=== PATIENT | female | born 1995 | race Caucasian/White ===

== ENCOUNTER 2016-10-29 11:26 | Emergency (ER) | payer OTHER ==
[2016-10-29 11:48] VITALS: RESP 16
[2016-10-29] MEDS ORDERED: NS 1,000 ML IV ONE (11:48)
[2016-10-29 12:12] LABS: % IMMATURE GRANULYOCYTES 0.5 % (0.0-1.1); ABSOLUTE IMMATURE GRANULOCYTES 0.04 10^3/uL (0.00-0.10); ADD DIFF? NO; ADD MORPH? NO; ADD SCAN? NO; ATYPICAL LYMPHOCYTE FLAG 0 (0-99); FRAGMENT RBC FLAG 0 (0-99); HEMATOCRIT 42.8 % (38.0-47.0); HEMOGLOBIN 14.7 g/dL (12.6-16.3); LEFT SHIFT FLG 0 (0-99); LIPEMIA HEMOLYSIS FLAG 90 (0-99); MEAN CELL HEMOGLOBIN 32.6 pg (27.9-34.1); MEAN CELL HEMOGLOBIN CONCENTR. 34.3 g/dL (32.4-36.7); MEAN CELL VOLUME 94.9 fL (81.5-99.8); MEAN PLATELET VOLUME 9.5 fL (8.7-11.7); PLATELET CLUMPS FLAG 20 (0-99); PLATELET COUNT 287 10^3/uL (150-400); RED BLOOD CELL COUNT 4.51 10^6/uL (4.18-5.33); RED CELL DISTRIBUTION WIDTH 11.9 % (11.5-15.2)
[2016-10-29 12:14] LABS: COLOR YELLOW; LEUKOCYTE ESTERASE,URINE NEGATIVE (NEGATIVE); NITRITE,URINE NEGATIVE (NEGATIVE); PH,URINE 6.5 (5.0-7.5)
[2016-10-29 12:28] LABS: ANION GAP 13 mEq/L (8-16); CALCIUM 9.8 mg/dL (8.5-10.4); CARBON DIOXIDE 26 mEq/l (22-31); CHLORIDE 100 mEq/L (97-110); CREATININE 0.7 mg/dL (0.6-1.0); GLOMERULAR FILTRATION RATE > 60; GLUCOSE 86 mg/dL (70-100); POTASSIUM 4.4 mEq/L (3.5-5.2); SODIUM 139 mEq/L (134-144)
--- NOTE | 2016-10-29 12:42 | UCPHY ---
H & P Patient Type: New Chief Complaint Nursing Narrative: C/o cramping and menstruating x 1 month. Denies new control. Time Seen by Provider: 10/29/16 11:48 HPI/ROS: This patient complains of menstruating for the past month. Her last menses started normal timing but has not stop for more than a month now. She reports the flow is typical for menses about 2-3 pads a day. She reports mild cramping that feels similar to menstrual cramping associated with her symptoms without other associated symptoms. She describes the peak intensity the cramping is 5/ 10. She has not taken any medications for her symptoms. She does take Sprintec OCP which is not new for her and she has been compliant with that regimen. She does not think she is . ROS: No lightheadedness. She reports no vaginal discharge. No urinary symptoms. No nausea vomiting. 7 point ROS is otherwise negative. Source: Patient Exam Limitations: No limitations - Personal History LMP (Females 10-55): Now Current Tetanus Diphtheria and Acellular Pertussis (TDAP): Yes Tetanus Vaccine Date: within 10 years - Medical/Surgical History PMH: otherwise healthy Hx Asthma: No Hx Chronic Respiratory Disease: No Hx Diabetes: No Hx Cardiac Disease: No Hx Renal Disease: No Hx Cirrhosis: No Hx Alcoholism: No Hx HIV/AIDS: No Hx Splenectomy or Spleen Trauma: No Other PMH: tonsilectomy, ear tubes - Family History Significant Family History: No pertinent family hx - Social History Smoking Status: Never smoked Alcohol Use: Occasionally Drug Use: None Additional Social History: She is a [employer] student. - Physical Exam Exam: General Appearance: Alert, no distress. Eyes: Pupils equal and round no pallor or injection. ENT, Mouth: Mucous membranes moist. Respiratory: There are no retractions, lungs are clear to auscultation. Cardiovascular: Regular rate and rhythm. Gastrointestinal: Abdomen is soft and nontender, no masses, bowel sounds normal. Neurological: Alert with no focal deficits. Back: No CVA tenderness Skin: Warm and dry, no rashes. Psychiatric: Mood and affect are normal. DIFFERENTIAL DIAGNOSIS: After history and physical exam differential diagnosis was considered for menorrhagia-ovarian cyst, medication side effect, , rule out anemia Constitutional: Initial Vital Signs Temperature (C) 36.5 C 10/29/16 11:45 Heart Rate 69 10/29/16 11:45 Respiratory Rate 16 10/29/16 11:45 Blood Pressure 112/63 10/29/16 11:45 O2 Sat (%) 98 10/29/16 11:45 O2 Delivery Mode Room Air Allergies/Adverse Reactions: Sulfa (Sulfonamide Antibiotics) Allergy (Intermediate, Verified 10/29/16 11:47) Hives Home Medications: Medication Instructions Recorded Iron 10/29/16 Minocycline HCl 10/29/16 Norethindrone Acetate [Aygestin 5 mg PO QID #30 tab 10/29/16 5mg (RX)] Syntec 10/29/16 Medical Decision Making ED Course/Re-evaluation: A review of studies reveals no anemia. She is not . Normal electrolytes. I counseled regarding menorrhagia. Will have her stop Sprintec and start her on Aygestin the regimen to stop her bleeding starting at four times daily and then down to three times daily and tapering down. Counseled regarding this. Also placed a call to our on-call OBGYN, Dr. Doe to facilitate follow-up but have not heard from her at the time this dictation at 1:55 p.m.. The patient is stable, not anemic not and looks well at the time of discharge - Data Points Laboratory Results: Laboratory Results 10/29/16 12:09 10/29/16 12:09 10/29/16 10/29/16 10/29/16 12:10 12:09 12:09 WBC RBC Hgb Hct MCV MCH MCHC RDW Plt Count MPV Neut % (Auto) Lymph % (Auto) [place] % (Auto) Eos % (Auto) Baso % (Auto) Nucleat RBC Rel Count Absolute Neuts (auto) Absolute Lymphs (auto) Absolute Monos (auto) Absolute Eos (auto) Absolute Basos (auto) Absolute Nucleated RBC Immature Gran % Immature Gran # Sodium 139 mEq/L mEq/L (134-144) Potassium 4.4 mEq/L mEq/L (3.5-5.2) Chloride 100 mEq/L mEq/L (97-110) Carbon Dioxide 26 mEq/l mEq/l (22-31) Anion Gap 13 mEq/L mEq/L (8-16) BUN 14 mg/dL mg/dL (7-23) Creatinine 0.7 mg/dL mg/dL (0.6-1.0) Estimated GFR > 60 Glucose 86 mg/dL mg/dL (70-100) Calcium 9.8 mg/dL mg/dL (8.5-10.4) Beta HCG, Qual NEGATIVE Urine Color YELLOW Urine Appearance CLEAR Urine pH 6.5 (5.0-7.5) Ur Specific [place] <= 1.005 (1.002-1.030) Urine Protein NEGATIVE (NEGATIVE) Urine Ketones NEGATIVE (NEGATIVE) Urine Blood NEGATIVE (NEGATIVE) Urine Nitrate NEGATIVE (NEGATIVE) Urine Bilirubin NEGATIVE (NEGATIVE) Urine Urobilinogen 0.2 EU EU (0.2-1.0) Ur Leukocyte Esterase NEGATIVE (NEGATIVE) Urine Glucose NEGATIVE (NEGATIVE) 10/29/16 12:09 WBC 8.35 10^3/uL 10^3/uL (3.80-9.50) RBC 4.51 10^6/uL 10^6/uL (4.18-5.33) Hgb 14.7 g/dL g/dL (12.6-16.3) Hct 42.8 % % (38.0-47.0) MCV 94.9 fL fL (81.5-99.8) MCH 32.6 pg pg (27.9-34.1) MCHC 34.3 g/dL g/dL (32.4-36.7) RDW 11.9 % % (11.5-15.2) Plt Count 287 10^3/uL 10^3/uL (150-400) MPV 9.5 fL fL (8.7-11.7) Neut % (Auto) 55.5 % % (39.3-74.2) Lymph % (Auto) 36.2 % % (15.0-45.0) [place] % (Auto) 6.2 % % (4.5-13.0) Eos % (Auto) 1.1 % % (0.6-7.6) Baso % (Auto) 0.5 % % (0.3-1.7) Nucleat RBC Rel Count 0.0 % % (0.0-0.2) Absolute Neuts (auto) 4.64 10^3/uL 10^3/uL (1.70-6.50) Absolute Lymphs (auto) 3.02 10^3/uL H 10^3/uL (1.00-3.00) Absolute Monos (auto) 0.52 10^3/uL 10^3/uL (0.30-0.80) Absolute Eos (auto) 0.09 10^3/uL 10^3/uL (0.03-0.40) Absolute Basos (auto) 0.04 10^3/uL 10^3/uL (0.02-0.10) Absolute Nucleated RBC 0.00 10^3/uL 10^3/uL (0-0.01) Immature Gran % 0.5 % % (0.0-1.1) Immature Gran # 0.04 10^3/uL 10^3/uL (0.00-0.10) Sodium Potassium Chloride Carbon Dioxide Anion Gap BUN Creatinine Estimated GFR Glucose Calcium Beta HCG, Qual Urine Color Urine Appearance Urine pH Ur Specific [place] Urine Protein Urine Ketones Urine Blood Urine Nitrate Urine Bilirubin Urine Urobilinogen Ur Leukocyte Esterase Urine Glucose Medications Given: Discontinued Medications Sodium Chloride (Ns) 1,000 mls @ 0 mls/hr IV ONCE ONE PRN Reason: Wide Open Stop: 10/29/16 11:49 Last Admin: 10/29/16 12:09 Dose: 1,000 mls Departure - Departure Disposition: Home, Routine, Self-Care Clinical Impression: Metrorrhagia Condition: Good Instructions: Dysfunctional Uterine Bleeding (ED) Additional Instructions: Diagnosis: Menorrhagia (bleeding between periods) You are not today in her other labs look normal. Plan: Drink plenty fluids Stop your Sprintec. Start Aygestin & take as prescribed. Then follow up with her OBGYN Go to the emergency department for any significant worsening despite treatment plan. Referrals: JONEL CAMPBELL H,. [Primary Care Provider] - As per Instructions Hanna Doe MD [Medical Doctor] - As per Instructions Stand Alone Forms: School Excuse Prescriptions: Norethindrone Acetate [Aygestin 5mg (RX)] 5 mg PO QID #30 tab - PQRS PQRS Measurement: NA
[2016-10-29 13:15] VITALS: BP 119/70; PULSE 71; TEMP 98.1; O2SAT 96
== END 2016-10-29 13:14 | disposition home or self-care (01) ==
LOC: CED 11:26
DX: N92.0 Excessive and frequent menstruation with regular cycle (principal)
CPT/HCPCS: 80048-PO; 81003-PO; 84703-PO; 85025-PO; 96360-PO; 99204-PO; G0463-PO